=== PATIENT | female | born 1955 | race American Indian/Alaskan Native ===

== ENCOUNTER → 2018-01-15 12:22 | Emergency (ER) | payer SELFPAY | END | disposition left against medical advice (07) | LOC: ED 12:22 | DX: M54.5 Low back pain (principal); Z53.21 Procedure and treatment not carried out due to patient leaving prior to being seen by health care provider ==

== ENCOUNTER 2018-01-15 15:10 | Emergency (ER) | payer MEDICARE ==
[2018-01-15 15:25] VITALS: BP 160/80
== END 2018-01-15 19:40 | disposition left against medical advice (07) ==
LOC: ED 15:10
DX: M54.5 Low back pain (principal); Z53.21 Procedure and treatment not carried out due to patient leaving prior to being seen by health care provider